=== PATIENT | male | born 1980 | race Caucasian/White ===

== ENCOUNTER 2019-12-12 08:54 | Outpatient (REF) | payer OTHER, SELFPAY | END 2019-12-12 08:55 | disposition home or self-care (01) | LOC: HO.BBR 08:54 | PROVIDERS: Visit Provider Internal Medicine | DX: E83.110 Hereditary hemochromatosis (principal) | CPT/HCPCS: 99195 ==

== ENCOUNTER → 2020-01-01 09:18 | Outpatient (BNV) | payer BC, OTHER, SELFPAY | PROVIDERS: PCP Internal Medicine; Visit Provider Internal Medicine | DX: E83.110 Hereditary hemochromatosis (principal) | CPT/HCPCS: 99213; 99214 ==

== ENCOUNTER 2020-05-26 14:08 | Outpatient (REF) | payer OTHER, SELFPAY | END 2020-05-26 14:09 | disposition home or self-care (01) | LOC: HO.BBR 14:08 | PROVIDERS: PCP Internal Medicine; Visit Provider Internal Medicine | DX: Z13.89 Encounter for screening for other disorder (principal) ==

== ENCOUNTER 2020-08-28 10:04 | Outpatient (REF) | payer OTHER, SELFPAY | END 2020-08-28 10:05 | disposition home or self-care (01) | LOC: HO.BBR 10:04 | PROVIDERS: Visit Provider Internal Medicine | DX: Z13.89 Encounter for screening for other disorder (principal) ==

== ENCOUNTER 2020-12-24 14:06 | Outpatient (REF) | payer OTHER, SELFPAY | END 2020-12-24 14:07 | disposition home or self-care (01) | LOC: HO.BBR 14:06 | PROVIDERS: Visit Provider Internal Medicine | DX: Z13.89 Encounter for screening for other disorder (principal) ==

== ENCOUNTER 2021-04-07 14:18 | Outpatient (REF) | payer BC, SELFPAY | END 2021-04-07 14:19 | disposition home or self-care (01) | LOC: HO.BBR 14:18 | PROVIDERS: PCP Internal Medicine; Visit Provider Internal Medicine | DX: Z13.89 Encounter for screening for other disorder (principal) ==

== ENCOUNTER 2021-06-11 14:10 | Outpatient (REF) | payer BC, SELFPAY | END 2021-06-11 14:11 | disposition home or self-care (01) | LOC: HO.BBR 14:10 | PROVIDERS: Visit Provider Internal Medicine | DX: Z13.89 Encounter for screening for other disorder (principal) ==

== ENCOUNTER 2021-08-31 09:56 | Outpatient (REF) | payer BC, SELFPAY | END 2021-08-31 09:57 | disposition home or self-care (01) | LOC: HO.BBR 09:56 | PROVIDERS: Visit Provider Internal Medicine | DX: Z13.89 Encounter for screening for other disorder (principal) ==

== ENCOUNTER 2022-09-29 14:02 | Outpatient (REF) | payer BC, SELFPAY | END 2022-09-29 14:03 | disposition home or self-care (01) | LOC: HO.BBR 14:02 | PROVIDERS: Visit Provider Internal Medicine | DX: Z13.89 Encounter for screening for other disorder (principal) ==

== ENCOUNTER 2022-11-11 14:00 | Outpatient (REF) | payer BC, SELFPAY | END 2022-11-11 14:01 | disposition home or self-care (01) | LOC: HO.BBR 14:00 | PROVIDERS: PCP Internal Medicine; Visit Provider Internal Medicine | DX: Z13.89 Encounter for screening for other disorder (principal) ==

== ENCOUNTER 2022-12-21 13:00 | Outpatient (REF) | payer BC, SELFPAY | END 2022-12-21 13:01 | disposition home or self-care (01) | LOC: HO.BBR 13:00 | PROVIDERS: PCP Internal Medicine; Visit Provider Internal Medicine | DX: Z13.89 Encounter for screening for other disorder (principal) ==

== ENCOUNTER 2023-02-01 13:59 | Outpatient (REF) | payer BC, SELFPAY | END 2023-02-01 14:00 | disposition home or self-care (01) | LOC: HO.BBR 13:59 | PROVIDERS: PCP Internal Medicine; Visit Provider Internal Medicine | DX: Z13.89 Encounter for screening for other disorder (principal) ==

== ENCOUNTER 2023-03-16 14:11 | Outpatient (REF) | payer BC, SELFPAY | END 2023-03-16 14:12 | disposition home or self-care (01) | LOC: HO.BBR 14:11 | PROVIDERS: PCP Internal Medicine; Visit Provider Internal Medicine | DX: Z13.89 Encounter for screening for other disorder (principal) ==

== ENCOUNTER 2023-05-03 14:08 | Outpatient (REF) | payer BC, SELFPAY | END 2023-05-03 14:09 | disposition home or self-care (01) | LOC: HO.BBR 14:08 | PROVIDERS: PCP Internal Medicine; Visit Provider Internal Medicine | DX: Z13.89 Encounter for screening for other disorder (principal) ==

== ENCOUNTER 2023-06-28 14:10 | Outpatient (REF) | payer BC, SELFPAY | END 2023-06-28 14:11 | disposition home or self-care (01) | LOC: HO.BBR 14:10 | PROVIDERS: PCP Internal Medicine; Visit Provider Internal Medicine | DX: Z13.89 Encounter for screening for other disorder (principal) ==

== ENCOUNTER 2023-09-13 15:19 | Outpatient (REF) | payer BC, SELFPAY ==
[2023-09-13 17:00] LABS: Ferritin 6 ng/mL (20-250)
== END 2023-09-13 15:20 | disposition home or self-care (01) ==
LOC: HO.BBR 15:19
PROVIDERS: PCP Internal Medicine; Visit Provider Internal Medicine
DX: E83.110 Hereditary hemochromatosis (principal)
CPT/HCPCS: 36415; 82728

== ENCOUNTER 2023-12-07 15:26 | Outpatient (REF) | payer BC, SELFPAY ==
[2023-12-07 17:22] LABS: Ferritin 6 ng/mL (20-250)
== END 2023-12-07 15:27 | disposition home or self-care (01) ==
LOC: HO.BBR 15:26
PROVIDERS: PCP Internal Medicine; Visit Provider Internal Medicine
DX: E83.110 Hereditary hemochromatosis (principal)
CPT/HCPCS: 36415; 82728

== ENCOUNTER 2024-04-25 08:05 | Outpatient (REF) | payer BC, SELFPAY ==
--- OUTSIDE RECORDS SUMMARY | 2024-04-25 08:16 | XMS_ITS | Encounter Summary ---
Author Organization Formerly [facility] Address [address] [place] [address] Care Team Providers Care Rn Stars Name Role Phone Nba Prakash MD Primary Care Provider [phone] Nba Prakash MD Unavailable [phone] Pcp, No Primary Care Provider Unavailabl e Encounter Details Date Type Department Care Team ([facility] Contact Info) Description 04/15/2017 Scanned Document [address] [address] Provider, Generic Social History Tobacco Use Types Packs/Day Years Used Date Smoking Tobacco: Never Smokeless Tobacco: Never Alcohol Use Standard Drinks/Week Comments Yes 0 (1 standard drink = 0.6 oz pur e alcohol) social Sex and Gender Information Value Date Recorded Sex Assigned at Male 09/14/2023 2:50 PM EDT Gender Identity Male 09/14/2023 2:50 PM EDT Sexual Orientation Heterosexual (straight) 09/13 2:50 PM EDT documented as of this encounter Plan of Treatment Not on file documented as of this encounter Visit Diagnoses Not on filedocumented in this encounter Care Teams Rn Stars Relationship Specialty Start Date End Date Nba Prakash MD PCP - General Family Medicine 03/22/17 05/16/22 Nba Prakash MD [address] [place] [address] PCP - [employer] Attributed 11/21/18 12/21/20 Pcp, No PCP - General General Medicine 05/17/22 documented as of this encounter
--- OUTSIDE RECORDS SUMMARY | 2024-04-25 08:16 | XMS_ITS | Clinical Summary ---
Author Organization [facility] Address [address] [place] [address] Care Team Providers Care Bus Van Driver Name Role Phone Pcp, No Primary Care Provider Unavailabl e Allergies Active Allergy Reactions Criticality Noted Date Comments Bupropion Hives,Rash/Dermatitis High 02/19/2016 Medications Medication Sig Dispensed Refills Start Date End Date Status MISC MEDICATION/NEUTRAC EUTICAL by Does not apply route. Protein shake with collagen, tumeric, multivitamin and mineral mix Active diclofenac enteric coated (VOLTAREN) 75 MG EC tabletIndications: Pain of left hip Take 1 tablet (75 mg total) by mouth 2 (two) times a day with meals. Administer with food avoid GI upset. 180 tablet 01/23/2024 Active benzonatate (TESSALON) 200 MG capsuleIndications :Bronchitis Take 1 capsule (200 mg total) by mouth 3 (three) times a day as needed for cough. 20 capsule 02/01/2024 Active proMETHAZINE-dextr omethorphan (proMETHAZINE-DM) 6.25-15 MG/5ML syrupIndications:B ronchitis Take 5 mL by mouth every 4 (four) hours as needed for cough. 120 mL 02/01/2024 Active albuterol (PROVENTIL HFA; VENTOLIN HFA) 108 (90 Base) MCG/ACT inhalerIndications :Bronchitis Inhale 2 puffs 4 times daily (every 6 hours) as needed for wheezing. 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 [address] [place] [address] Hasmukh Castellanos MD Scott, Courtney A, PA-C Bronchitis (Primary Dx) 02/01/2024 Scanned Document [facility] [address] [facility] [address] [place] [address] Provider, Generic 02/01/2024 Travel 02/01/2024 Scanned Document [facility] [address] [facility] [address] [place] [address] Provider, Generic 01/30/2024 7:07 AM EST - 01/30/2024 11:59 PM EST Hospital Encounter [facility] Radiology [facility] [address] [place] [address] Nilo Duque MD Pain of left hip Discharge Disposition: Home or Self Care from Last 3 Months Family History Medical History Relation Name Comments Hemochromatosis Brother 2 Hypertension Father Hypertension Mother Relation Name Status Comments Brother 1 Alive Brother 2 Alive Father Alive Mother Alive Social History Tobacco Use Types Packs/Day Years Used Date Smoking Tobacco: Never Smokeless Tobacco: Never Alcohol Use Standard Drinks/Week Comments Yes 0 (1 standard drink = 0.6 oz pur e alcohol) social Sex and Gender Information Value Date Recorded Sex Assigned at Male 09/14/2023 2:50 PM EDT Gender Identity Male 09/14/2023 2:50 PM EDT Sexual Orientation Heterosexual (straight) 09/13 2:50 PM EDT Last Filed Vital Signs Vital Sign Reading Time Taken Comments Blood Pressure 109/72 02/01/2024 9:19 AM EST Pulse 60 02/01/2024 9:19 AM EST Temperature 36.8 ??C (98.2 ??F) 02/01/2024 9:19 AM ES T Respiratory Rate 19 02/01/2024 9:19 AM EST Oxygen Saturation 98% 02/01/2024 9:19 AM EST Inhaled Oxygen Concentration - - Weight 96.2 kg (212 lb) 02/01/2024 9:19 AM EST Height 182.9 cm (6') 02/01/2024 9:19 AM EST Body Mass Index 28.75 02/01/2024 9:19 AM EST Plan of Treatment Health Maintenance Due Date Last Done Comments Hepatitis C Virus Screening 1982 DTaP/Tdap/Td Vaccines (1 - Tdap) 2001 Hepatitis B Vaccines (1 of 3 - 19+ 3-dose series) 2001 HIV Screening Completed 10/13/2020 COVID-19 Vaccine Completed 12/08/2023, , 11/25/2021, Additional history exists Influenza Vaccine Completed 12/08/2023, , 12/09/2022, Additional history exists HPV Vaccines Aged Out No longer eligi ble based on patient's age to complete this topic Pneumococcal Vaccine: Pediatric (0-5 Years) and At-Risk Patients (6 to 49 Years) Aged Out No longer eligible based on patient's age to complete this topic Procedures Procedure Name Priority Date/Time Associated Diagnosis Comments MRI HIP W/O CONTRAST-LEFT Routine 01/30/2024 7:43 AM EST Pain of left hip from Last 3 Months Results * MRI Hip w/o contrast-Left (01/30/2024 7:43 AM EST) Anatomical Region Laterality Modality Hip Left Magnetic Resonan ce 01/30/2024 11:3 6 AM EST Impressions 01/30/2024 11:44 AM EST 1. Moderate osteoarthrosis of the left hip joint. Bulky osteophytes at the femoral head/neck junction with abnormal alpha angle of 61 degrees, findings which may predispose towards cam-type femoroacetabular impingement. 2. Complex tear of the posterosuperior and superior acetabular labrum. 3. 5 mm ossified intra-articular body within the anteroinferior hip joint and possible 2 mm low signal body within the posteroinferior hip joint. Narrative 01/30/2024 11:44 AM EST EXAM: MRI HIP W/O CONTRAST-LEFT on 01/30/2024 7:08 AM CLINICAL HISTORY: RYAN LOPEZ is a 43 years old patient with a submitted history of LEFT HIP PAIN R/O LABRAL TEAR, 4-5 months of left hip pain with no injury surgery or cancer, suspected arthritis. ADDITIONAL HISTORY: Pain of left hip COMPARISONS: None TECHNIQUE: Following established exam protocols, multisequence, multiangle images with fat saturation were obtained through the left hip without contrast. FINDINGS: BONES: Bone marrow signal is normal, without evidence for fracture or bone marrow edema. There is no avascular necrosis of the femoral head. Bulky osteophytes at the femoral head/neck junction, pronounced anterosuperiorly. Result in abnormal alpha angle of 61 degrees, findings which predispose towards cam-type femoroacetabular impingement. HIP JOINT: There is moderate superolateral hip joint space narrowing with areas of high-grade to full-thickness femoroacetabular chondral loss anterosuperiorly and posterosuperiorly. Mild subchondral cystic change within the superior acetabulum. There is a small synovial herniation pit at the anterosuperior femoral head/neck junction. Small hip joint effusion. An ossified intra-articular body within the anteroinferior joint measures 6 x 5 mm. Possible additional small low signal body within the posteroinferior joint measures 2 mm. LABRUM: Complex multidirectional tear of the posterosuperior and superior acetabular labrum from the 10:00 through 12:30 positions. SOFT TISSUES: There is no greater trochanteric or iliopsoas bursitis. The hamstring origins are intact. The gluteus minimus and medius tendons attach normally on the greater trochanter. There is no muscle edema or atrophy. PELVIC CONTENTS:Limited evaluation of the intrapelvic contents is unremarkable. Procedure Note Karey Awan MD - 01/30/2024 EXAM: MRI HIP W/O CONTRAST-LEFT on 01/30/2024 7:08 AM CLINICAL HISTORY: RYAN LOPEZ is a 43 years old patient with a submitted history ofLEFT HIP PAIN R/O LABRAL TEAR, 4-5 months of left hip pain with no injurysurgery or cancer, suspected arthritis. ADDITIONAL HISTORY: Pain of left hip COMPARISONS: None TECHNIQUE: Following established exam protocols, multisequence, multiangle imageswith fat saturation were obtained through the left hip without contrast. FINDINGS: BONES: Bone marrow signal is normal, without evidence for fracture or bonemarrow edema. There is no avascular necrosis of the femoral head. Bulkyosteophytes at the femoral head/neck junction, pronouncedanterosuperiorly. Result in abnormal alpha angle of 61 degrees, findings which predispose towards cam-type femoroacetabularimpingement. HIP JOINT: There is moderate superolateral hip joint space narrowing withareas of high-grade to full-thickness femoroacetabular chondral lossanterosuperiorly and posterosuperiorly. Mild subchondral cystic changewithin the superior acetabulum. There is a small synovial herniation pit at the anterosuperior femoral head/neckjunction. Small hip joint effusion. An ossified intra-articular bodywithin the anteroinferior joint measures 6 x 5 mm. Possible additionalsmall low signal body within the posteroinferior joint measures 2 mm. LABRUM: Complex multidirectional tear of the posterosuperior and superioracetabular labrum from the 10:00 through 12:30 positions. SOFT TISSUES: There is no greater trochanteric or iliopsoas bursitis. Thehamstring origins are intact. The gluteus minimus and medius tendonsattach normally on the greater trochanter. There is no muscle edema oratrophy. PELVIC CONTENTS:Limited evaluation of the intrapelvic contents isunremarkable. IMPRESSION: 1. Moderate osteoarthrosis of the left hip joint. Bulky osteophytes at thefemoral head/neck junction with abnormal alpha angle of 61 degrees,findings which may predispose towards cam-type femoroacetabularimpingement. 2. Complex tear of the posterosuperior and superior acetabular labrum. 3. 5 mm ossified intra-articular body within the anteroinferior hip jointand possible 2 mm low signal body within the posteroinferior hip joint. Nilo Duque MD IMG MRI ORDERABLES from Last 3 Months Care Teams Bus Van Driver Relationship Specialty Start Date End Date Pcp, Loan PCP - General General Medicine 05/17/22
--- OUTSIDE RECORDS SUMMARY | 2024-04-25 08:16 | XMS_ITS | Encounter Summary ---
Author Organization [facility] Address [address] [place] [address] Care Team Providers Care Blogs Manager Name Role Phone Pcp, No Primary Care Provider Unavailabl e Nba Prakash MD Primary Care Provider [phone] Nba Prakash MD Unavailable [phone] Pcp, No Primary Care Provider Unavailabl e Encounter Details Date Type Department Care Team (Late st Contact Info) Description 01/25/2017 Scanned Document [address] [address] Provider, Generic Social History Tobacco [...] on filedocumented in this encounter Care Teams Blogs Manager Relationship Specialty Start Date End Date Pcp, No PCP - General General Medicine 02/17/16 03/21/17 Nba Prakash MD PCP - General Family Medicine 03/22/17 05/16/22 Nba Prakash MD [facility] [place] [address] [place] [address] PCP - [employer] Attributed 11/21/18 12/21/20 Pcp, No PCP - General General Medicine 05/17/22 documented as of this encounter
--- OUTSIDE RECORDS SUMMARY | 2024-04-25 08:16 | XMS_ITS | Encounter Summary ---
Author Organization [facility] Address [address] [place] [address] Care Team Providers Care It Telecom Technician Name Role Phone Nba Prakash MD Primary Care Provider [phone] Nba Prakash MD Unavailable [phone] Pcp, No Primary Care Provider Unavailabl e Encounter Details Date Type Department Care Team ([facility] Contact Info) Description 09/21/2019 Scanned Document [address] [address] Nba Prakash MD [address] [place] [address] Social History Tobacco Use Types Packs/Day Years [...] on filedocumented in this encounter Care Teams It Telecom Technician Relationship Specialty Start Date End Date Nba Prakash MD PCP - General Family Medicine 03/22/17 05/16/22 YoNba martinez MD [address] [place] [address] PCP - [employer] Attributed 11/21/18 12/21/20 Pcp, No PCP - General General Medicine 05/17/22 documented as of this encounter
--- OUTSIDE RECORDS SUMMARY | 2024-04-25 08:16 | XMS_ITS | Encounter Summary ---
Author Organization [facility] Address [address] [place] [address] Care Team Providers Care Inside Tester Name Role Phone Pcp, No Primary Care Provider Unavailabl e Nba Prakash MD Primary Care Provider [phone] Nba Prakash MD Unavailable [phone] Pcp, No Primary Care Provider Unavailabl e Encounter Details Date Type Department Care Team (Late st Contact Info) Description 01/28/2017 Scanned Document [address] [address] Provider, Generic Social History Tobacco [...] on filedocumented in this encounter Care Teams Inside Tester Relationship Specialty Start Date End Date Pcp, No PCP - General General Medicine 02/17/16 03/21/17 Nba Prakash MD PCP - General Family Medicine 03/22/17 05/16/22 Nba Prakash MD [facility] [place] [address] PCP - [employer] Attributed 11/21/18 12/21/20 Pcp, No PCP - General General Medicine 05/17/22 documented as of this encounter
--- OUTSIDE RECORDS SUMMARY | 2024-04-25 08:16 | XMS_ITS | Encounter Summary ---
Author Organization [facility] Address [address] [place] [address] Care Team Providers Care Wrapper And Preserver Name Role Phone Nba Prakash MD Primary Care Provider [phone] Nba Prakash MD Unavailable [phone] Pcp, No Primary Care Provider Unavailabl e Encounter Details Date Type Department Care Team ([facility] Contact Info) Description 04/15/2017 Scanned Document [address] [address] Provider, Generic Social History Tobacco [...] on filedocumented in this encounter Care Teams Wrapper And Preserver Relationship Specialty Start Date End Date Nba Prakash MD PCP - General Family Medicine 03/22/17 05/16/22 Nba Prakash MD [address] [place] [address] PCP - [employer] Attributed 11/21/18 12/21/20 Pcp, No PCP - General General Medicine 05/17/22 documented as of this encounter
--- OUTSIDE RECORDS SUMMARY | 2024-04-25 08:16 | XMS_ITS | Clinical Summary ---
Author Organization [facility] it Address [address] [place] [address] Care Team Providers Care Waste Machine Tender Name Role Phone Nba Prakash MD Primary Care Provider Social History Tobacco Use Types Packs/Day Years Used Date Smoking Tobacco: Never Assessed Sex and Gender Information Value Date Recorded Sex Assigned at Not on file Legal Sex Male 9:18 PM EST Gender Identity Not on file Sexual Orientation Not on file Plan of Treatment Health Maintenance Due Date Last Done Comments DTaP,Tdap,and Td Vaccines (1 - Tdap) 2001 Hepatitis B Vaccines (1 of 3 - 19+ 3-dose series) 2001 COVID-19 Vaccine (2023-2 5 season) 2023 03/07/2020, 02/18/2020 Influenza Vaccine (#1) 2023 HIB Vaccines Aged Out No longer eligi ble based on patient's age to complete this topic HPV Vaccines Aged Out No longer eligi ble based on patient's age to complete this topic Hepatitis A Vaccines Aged Out No long er eligible based on patient's age to complete this topic IPV Vaccines Aged Out No longer eligi ble based on patient's age to complete this topic MMR Vaccines Aged Out No longer eligi ble based on patient's age to complete this topic Meningococcal ACWY Vaccine Aged Out N o longer eligible based on patient's age to complete this topic Meningococcal B Vacine Aged Out No lo nger eligible based on patient's age to complete this topic Pneumococcal Vaccine: Pediatrics (0 to 5 Years) and At-Risk Patients (6 to 64 Years) Aged Out No longer eligible b ased on patient's age to complete this topic RSV Immunization Patients Under 20 months Aged Out No longer eligible b ased on patient's age to complete this topic Varicella Vaccines Aged Out No longer eligible based on patient's age to complete this topic Care Teams Waste Machine Tender Relationship Specialty Start Date End Date Nba Prakash MD [address] [place] [address] PCP - General Internal Medicine 02/18/20
--- OUTSIDE RECORDS SUMMARY | 2024-04-25 08:16 | XMS_ITS ---
Author Name [facility] Organization Unknown History of Medication Use Medication Directions Dispensed Refills Start Date End Date Stat benzonatate (TESSALON) 200 MG capsule Take 1 capsule (200 mg total) by mouth 3 (three) times a day as needed for cough. 02/01/2024 active Problems Problem Status Onset Date Problem Type Date of Resolution Source H/O Dunn's palsy active 2017-04-15 ProblemAct H HCCT Arthritis of left hip active EncounterDiagnosis Act CCT Depression active 2017-04-15 ProblemAct HHCCT Hemochromatosis active 2016-02-19 ProblemAct HH CCT
--- OUTSIDE RECORDS SUMMARY | 2024-04-25 08:16 | XMS_ITS | Clinical Summary ---
Author Organization [facility] Address [address] [place] [address] Care Team Providers Care Manager Truck Name Role Phone Nba Prakash MD Primary Care Provider [phone] Immunizations Name Administration Dates Next Due Covid-19 (Pfizer) Dilution Required 03/07/2020,1 04/20/2019 Social History Tobacco Use Types Packs/Day Years Used Date Smoking Tobacco: Never Assessed Sex and Gender Information Value Date Recorded Sex Assigned at Male 02/18/2020 2:49 PM EST Gender Identity Not on file Sexual Orientation Not on file Plan of Treatment Health Maintenance Due Date Last Done Comments Hepatitis B Vaccines (1 of 3 - 3-dose series) 1982 Depression Screening 1994 Preventative Health Evaluation 2000 DTap / Tdap / Td (1 - Tdap) 2001 COVID-19 Vaccine (3 - 2023-2 5 season) 2023 03/07/2020, 02/18/2020 Influenza Vaccine (#1) 2023 Hepatitis C Screening Completed 10/13/2020 Pneumococcal Vaccine Aged Out No long er eligible based on patient's age to complete this topic RSV Ped < 20 months Aged Out No longe r eligible based on patient's age to complete this topic Care Teams Manager Truck Relationship Specialty Start Date End Date Nba Prakash MD [address] [place] [address] PCP - General Internal Medicine 02/18/20
--- OUTSIDE RECORDS SUMMARY | 2024-04-25 08:16 | XMS_ITS | Encounter Summary ---
Author Organization [facility] Address [address] [place] [address] Care Team Providers Care Mechanical Maintenance Engineer Name Role Phone Nba Prakash MD Primary Care Provider [phone] Nba Prakash MD Unavailable [phone] Pcp, No Primary Care Provider Unavailabl e Encounter Details Date Type Department Care Team ([facility] Contact Info) Description 10/17/2019 Scanned Document [address] [address] Nba Prakash MD [address] [place] [address] Social History Tobacco Use Types Packs/Day Years [...] on filedocumented in this encounter Care Teams Mechanical Maintenance Engineer Relationship Specialty Start Date End Date Nba Prakash MD PCP - General Family Medicine 03/22/17 05/16/22 YoNba martinez MD [address] [place] [address] PCP - [employer] Attributed 11/21/18 12/21/20 Pcp, No PCP - General General Medicine 05/17/22 documented as of this encounter
--- OUTSIDE RECORDS SUMMARY | 2024-04-25 08:16 | XMS_ITS | Encounter Summary ---
Author Organization [facility] Address [address] [place] [address] Care Team Providers Care Embedded Systems Software Developer Name Role Phone Nba Prakash MD Primary Care Provider [phone] Nba Prakash MD Unavailable [phone] Pcp, No Primary Care Provider Unavailabl e Encounter Details Date Type Department Care Team ([facility] Contact Info) Description 10/17/2019 Scanned Document [address] [address] Nba Prakash MD [address] [place] [address] Social History Tobacco Use Types Packs/Day Years [...] on filedocumented in this encounter Care Teams Embedded Systems Software Developer Relationship Specialty Start Date End Date Nba Prakash MD PCP - General Family Medicine 03/22/17 05/16/22 YoNba martinez MD [address] [place] [address] PCP - [employer] Attributed 11/21/18 12/21/20 Pcp, No PCP - General General Medicine 05/17/22 documented as of this encounter
--- OUTSIDE RECORDS SUMMARY | 2024-04-25 08:17 | XMS_ITS | Encounter Summary ---
Author Organization [facility] Address [address] [place] [address] Care Team Providers Care Strategic Planner Name Role Phone Pcp, No Primary Care Provider Unavailabl e Encounter Details Date Type Department Care Team ([facility] Contact Info) Description 02/01/[address] [facility] [address] [facility] [address] [place] [phone] Provider, Generic Social History Tobacco Use Types [...] on filedocumented in this encounter Care Teams Strategic Planner Relationship Specialty Start Date End Date Pcp, No PCP - General General Medicine 05/17/22 documented as of this encounter
--- OUTSIDE RECORDS SUMMARY | 2024-04-25 08:17 | XMS_ITS | Clinical Summary ---
Author Organization [facility] Address [address] [place] [address] Care Team Providers Care Billboard Poster Helper Name Role Phone Hasmukh Bullard MD Primary Care Provider [phone] Allergies Active Allergy Reactions Criticality Noted Date Comments Bupropion 02/10/2009 Food 05/14/2010 Reactions: Throat Tightening , [employer] Comment: 14May2010: Just certain varieties of apples. Active Problems Problem Noted Date Diagnosed Date Hyperglycemia 05/14/2010 Allergic rhinitis 02/10/2009 Hemochromatosis 02/10/2009 Immunizations Name Administration Dates Next Due DTP-Hib 02/10/1989,03/09/1985,02/03/1983 ,1982,1982 Hep B (adult) 10/04/1997 Hep B (pedi) 06/21/1998,11/09/1997 MMR 10/20/1995 Measles 10/12/1983 Mumps 10/18/1984 OPV 04/13/1988,03/09/1985,1982 ,1982 Rubella 10/18/1984 Td (adult), adsorbed 10/04/1997 Tdap 05/14/2010 Family History Medical History Relation Name Comments Thyroid Disorder Mother Hypothyroid ism : Mother Depression Other Depression : Fa cally History Hemochromatosis Other Hemochromato sis : Family History Relation Name Status Comments Mother Other Social History Tobacco Use Types Packs/Day Years Used Date Smoking Tobacco: Never Assessed Comments:Smoking Status:Pearl bob a smoker Sex and Gender Information Value Date Recorded Sex Assigned at Not on file Legal Sex Male 3:01 PM EDT Gender Identity Not on file Sexual Orientation Not on file Last Filed Vital Signs Vital Sign Reading Time Taken Comments Blood Pressure 112/68 05/14/2010 9:35 AM EDT Pulse - - Temperature - - Respiratory Rate - - Oxygen Saturation - - Inhaled Oxygen Concentration - - Weight 92.5 kg (203 lb 15.9 oz) 05/14/2010 9:35 AM EDT Height 184.2 cm (6' 0.5 ) 05/14/2010 9:35 AM EDT Body Mass Index 27.29 05/14/2010 9:35 AM EDT Plan of Treatment Health Maintenance Due Date Last Done Comments Hepatitis C Screening 1982 DTaP/Tdap/Td (7 - Td or Tdap) 05/14/2020 05/14/2010, 10/04/1997, 02/10/1989, Additional history exists COVID-19 Vaccine (2023- season) 2023 Influenza (#1) 2023 Zoster (Shingrix) (1 of 2) 2032 Hib Completed 02/10/1989, 02/21, 02/03/1983, Additional history exists Hep B Completed 06/21/1998, 10/22, 10/04/1997 HPV Vaccine Aged Out No longer eligi ble based on patient's age to complete this topic Hep A Aged Out No longer eligi ble based on patient's age to complete this topic Meningococcal ACWY Aged Out No longer eligible based on patient's age to complete this topic Pneumococcal Aged Out No longer eligi ble based on patient's age to complete this topic Care Teams Billboard Poster Helper Relationship Specialty Start Date End Date Hasmukh Bullard MD [facility] [address] [place] [address] PCP - General 09/27/22
--- OUTSIDE RECORDS SUMMARY | 2024-04-25 08:17 | XMS_ITS | Encounter Summary ---
Author Organization [facility] Address [address] [place] [address] Care Team Providers Care Process Inspector Name Role Phone Nba Prakash MD Primary Care Provider [phone] Nba Prakash MD Unavailable [phone] Pcp, No Primary Care Provider Unavailabl e Encounter Details Date Type Department Care Team ([facility] Contact Info) Description 10/18/2018 Scanned Document [address] [phone] Nba Prakash MD [address] [place] [address] Social History Tobacco Use Types Packs/Day Years [...] on file documented as of this encounter Procedures Procedure Name Priority Date/Time Associated Diagnosis Comments LAB RESULT Routine 10/18/2018 documented in this encounter Results * LAB RESULT (10/18/2018) Nba Prakash MD HX AMB PROCEDURES documented in this encounter Visit Diagnoses Not on filedocumented in this encounter Care Teams Process Inspector Relationship Specialty Start Date End Date Nba Prakash MD PCP - General Family Medicine 03/22/17 05/16/22 Nba Prakash MD [address] [place] [address] PCP - [employer] Attributed 11/21/18 12/21/20 Pcp, No PCP - General General Medicine 05/17/22 documented as of this encounter
--- OUTSIDE RECORDS SUMMARY | 2024-04-25 08:17 | XMS_ITS | Encounter Summary ---
Author Organization [facility] Address [address] [place] [address] Care Team Providers Care Crime Analyst Name Role Phone Nba Prakash MD Primary Care Provider [phone] Nba Prakash MD Unavailable [phone] Pcp, No Primary Care Provider Unavailabl e Encounter Details Date Type Department Care Team ([facility] Contact Info) Description 05/18/2019 Scanned Document [address] [phone] Nba Prakash MD [address] [place] [address] Social History Tobacco Use Types Packs/Day Years [...] on filedocumented in this encounter Care Teams Crime Analyst Relationship Specialty Start Date End Date Nba Prakash MD PCP - General Family Medicine 03/22/17 05/16/22 YoNba martinez MD [address] [place] [address] PCP - [employer] Attributed 11/21/18 12/21/20 Pcp, No PCP - General General Medicine 05/17/22 documented as of this encounter
--- OUTSIDE RECORDS SUMMARY | 2024-04-25 08:17 | XMS_ITS | Encounter Summary ---
Author Organization [facility] Address [address] [place] [address] Care Team Providers Care Trapeze Artist Name Role Phone Nba Prakash MD Primary Care Provider [phone] Nba Prakash MD Unavailable [phone] Pcp, No Primary Care Provider Unavailabl e Encounter Details Date Type Department Care Team ([facility] Contact Info) Description 05/25/2019 Scanned Document [address] [phone] Nba Prakash MD [address] [place] [address] Social History Tobacco Use Types Packs/Day Years [...] Date/Time Associated Diagnosis Comments LAB RESULT Routine 05/23/2019 documented in this encounter Results * LAB RESULT (05/23/2019) Nba Prakash MD HX AMB PROCEDURES documented in this encounter Visit Diagnoses Not on filedocumented in this encounter Care Teams Trapeze Artist Relationship Specialty Start Date End Date Nba Prakash MD PCP - General Family Medicine 03/22/17 05/16/22 Nba Prakash MD [address] [place] [address] PCP - [employer] Attributed 11/21/18 12/21/20 Pcp, No PCP - General General Medicine 05/17/22 documented as of this encounter
--- OUTSIDE RECORDS SUMMARY | 2024-04-25 08:17 | XMS_ITS | Encounter Summary ---
Author Organization [facility] Address [address] [place] [address] Care Team Providers Care Instrument Specialist Name Role Phone Nba Prakash MD Primary Care Provider [phone] Nba Prakash MD Unavailable [phone] Pcp, No Primary Care Provider Unavailabl e Encounter Details Date Type Department Care Team ([facility] Contact Info) Description 07/26/2019 Scanned Document [address] [phone] Nba Prakash MD [address] [place] [address] Social History Tobacco Use Types Packs/Day Years [...] on filedocumented in this encounter Care Teams Instrument Specialist Relationship Specialty Start Date End Date Nba Prakash MD PCP - General Family Medicine 03/22/17 05/16/22 YoNba martinez MD [address] [place] [address] PCP - [employer] Attributed 11/21/18 12/21/20 Pcp, No PCP - General General Medicine 05/17/22 documented as of this encounter
--- OUTSIDE RECORDS SUMMARY | 2024-04-25 08:17 | XMS_ITS | Encounter Summary ---
Author Organization [facility] Address [address] [place] [address] Care Team Providers Care Printing Specialist Name Role Phone Pcp, No Primary Care Provider Unavailabl e Encounter Details Date Type Department Care Team ([facility] st Contact Info) Description 02/01/2024 Scanned Document [facility] 80 [facility] [address] [place] [phone] Provider, Generic Social History Tobacco Use Types [...] on filedocumented in this encounter Care Teams Printing Specialist Relationship Specialty Start Date End Date Pcp, No PCP - General General Medicine 05/17/22 documented as of this encounter
--- OUTSIDE RECORDS SUMMARY | 2024-04-25 08:17 | XMS_ITS | Clinical Summary ---
Author Organization [facility] Address [address] [place] [address] Care Team Providers Care Rand Maker Name Role Phone Unavailable Primary Care Provider Unavailabl e Social History Tobacco Use Types Packs/Day Years Used Date Smoking Tobacco: Never Assessed Sex and Gender Information Value Date Recorded Sex Assigned at Not on file Legal Sex Male 2:56 AM EST Gender Identity Not on file Sexual Orientation Not on file Plan of Treatment Not on file
--- OUTSIDE RECORDS SUMMARY | 2024-04-25 08:17 | XMS_ITS | Encounter Summary ---
Author Organization [facility] Address [address] [place] [address] Care Team Providers Care Qualifications Examiner Name Role Phone Pcp, No Primary Care Provider Unavailabl e Encounter Details Date Type Department Care Team ([facility] Contact Info) Description 01/04/2024 Scanned Document [facility] ORTHO SURGERY SCAN Orthopedic Surgery, Scan Social History Tobacco Use Types Packs/Day Years [...] on filedocumented in this encounter Care Teams Qualifications Examiner Relationship Specialty Start Date End Date Pcp, No PCP - General General Medicine 05/17/22 documented as of this encounter
--- OUTSIDE RECORDS SUMMARY | 2024-04-25 08:17 | XMS_ITS | Encounter Summary ---
Author Organization [facility] Address [address] [place] [address] Care Team Providers Care Pump And Blower Operator Name Role Phone Nba Prakash MD Primary Care Provider [phone] Nba Prakash MD Unavailable [phone] Pcp, No Primary Care Provider Unavailabl e Encounter Details Date Type Department Care Team ([facility] Contact Info) Description 05/18/2019 Scanned Document [address] [phone] Nba Prakash MD [address] [place] [address] Social History Tobacco Use Types Packs/Day Years [...] Date/Time Associated Diagnosis Comments LAB RESULT Routine 05/01/2019 documented in this encounter Results * LAB RESULT (05/01/2019) Nba Prakash MD HX AMB PROCEDURES documented in this encounter Visit Diagnoses Not on filedocumented in this encounter Care Teams Pump And Blower Operator Relationship Specialty Start Date End Date Nba Prakash MD PCP - General Family Medicine 03/22/17 05/16/22 Nba Prakash MD [address] [place] [address] PCP - [employer] Attributed 11/21/18 12/21/20 Pcp, No PCP - General General Medicine 05/17/22 documented as of this encounter
--- OUTSIDE RECORDS SUMMARY | 2024-04-25 08:17 | XMS_ITS | Encounter Summary ---
Author Organization [facility] Address [address] [place] [address] Care Team Providers Care Line Runner Name Role Phone Pcp, No Primary Care Provider Unavailabl e Nba Prakash MD Primary Care Provider [phone] Nba Prakash MD Unavailable [phone] Pcp, No Primary Care Provider Unavailabl e Encounter Details Date Type Department Care Team (Late st Contact Info) Description 01/25/2017 Scanned Document [address] [phone] Provider, Generic Social History Tobacco [...] on filedocumented in this encounter Care Teams Line Runner Relationship Specialty Start Date End Date Pcp, No PCP - General General Medicine 02/17/16 03/21/17 Nba Prakash MD PCP - General Family Medicine 03/22/17 05/16/22 Nba Prakash MD [facility] [place] [address] PCP - [employer] Attributed 11/21/18 12/21/20 Pcp, No PCP - General General Medicine 05/17/22 documented as of this encounter
--- OUTSIDE RECORDS SUMMARY | 2024-04-25 08:17 | XMS_ITS | Encounter Summary ---
Author Organization [facility] Address [address] [place] [address] Care Team Providers Care Director Ship Name Role Phone Pcp, No Primary Care Provider Unavailabl e Encounter Details Date Type Department Care Team ([facility] Contact Info) Description 01/24/2024 Scanned Document [facility] 80 [facility] [address] [place] [phone] Primary Care, Scan Social History Tobacco Use Types Packs/Day [...] Procedure Name Priority Date/Time Associated Diagnosis Comments HX OUTSIDE ORDER 01/24/2024 documented in this encounter Results * OUTSIDE ORDER (01/24/2024) Scan Primary Care HX AMB PROCEDURES documented in this encounter Visit Diagnoses Not on filedocumented in this encounter Care Teams Director Ship Relationship Specialty Start Date End Date Pcp, No PCP - General General Medicine 05/17/22 documented as of this encounter
--- OUTSIDE RECORDS SUMMARY | 2024-04-25 08:17 | XMS_ITS | Encounter Summary ---
Author Organization [facility] Address [address] [place] [address] Care Team Providers Care Marketing Forecaster Name Role Phone Nba Prakash MD Primary Care Provider [phone] Nba Prakash MD Unavailable [phone] Pcp, No Primary Care Provider Unavailabl e Encounter Details Date Type Department Care Team ([facility] Contact Info) Description 04/09/2019 Scanned Document [address] [phone] Nba Prakash MD [address] [place] [address] Social History Tobacco Use Types Packs/Day Years [...] on filedocumented in this encounter Care Teams Marketing Forecaster Relationship Specialty Start Date End Date Nba Prakash MD PCP - General Family Medicine 03/22/17 05/16/22 YoNba martinez MD [address] [place] [address] PCP - [employer] Commercial Attributed 11/21/18 12/21/20 Pcp, No PCP - General General Medicine 05/17/22 documented as of this encounter
--- OUTSIDE RECORDS SUMMARY | 2024-04-25 08:17 | XMS_ITS | Encounter Summary ---
Author Organization [facility] Address [address] [place] [address] Care Team Providers Care Manufacturing Mechanic Name Role Phone Pcp, No Primary Care Provider Unavailabl e Nba Prakash MD Primary Care Provider [phone] Nba Prakash MD Unavailable [phone] Pcp, No Primary Care Provider Unavailabl e Encounter Details Date Type Department Care Team (Late st Contact Info) Description 01/18/2017 Scanned Document [address] [phone] Provider, Generic Social History Tobacco Use Types Packs/Day Years Used Date Smoking Tobacco: Never Alcohol Use Standard Drinks/Week Comments Not Asked 0 (1 standard drink = 0.6 oz pur e alcohol) Sex and Gender Information Value Date Recorded Sex Assigned at Male 09/14/2023 2:50 PM EDT Gender Identity Male 09/14/2023 2:50 PM EDT Sexual Orientation Heterosexual (straight) 09/13 2:50 PM EDT documented as of this encounter Plan of Treatment Not on file documented as of this encounter Visit Diagnoses Not on filedocumented in this encounter Care Teams Manufacturing Mechanic Relationship Specialty Start Date End Date Pcp, No PCP - General General Medicine 02/17/16 03/21/17 Nba Prakash MD PCP - General Family Medicine 03/22/17 05/16/22 Nba Prakash MD [address] [place] [address] PCP - [employer] Attributed 11/21/18 12/21/20 Pcp, No PCP - General General Medicine 05/17/22 documented as of this encounter
--- OUTSIDE RECORDS SUMMARY | 2024-04-25 08:17 | XMS_ITS | Encounter Summary ---
Author Organization [facility] Address [address] [place] [address] Care Team Providers Care Supervisor Inspection Name Role Phone Pcp, No Primary Care Provider Unavailabl e Nba Prakash MD Primary Care Provider [phone] Nba Prakash MD Unavailable [phone] Pcp, No Primary Care Provider Unavailabl e Encounter Details Date Type Department Care Team ([facility] st Contact Info) Description 01/18/2017 Scanned Document [address] [phone] Provider, Generic Social History Tobacco [...] Priority Date/Time Associated Diagnosis Comments LAB RESULT 01/18/2017 documented in this encounter Results * LAB RESULT (01/18/2017) Narrative 01/18/2017 Ordered by an unspecified provider. Generic Provider HX AMB PROCEDURES documented in this encounter Visit Diagnoses Not on filedocumented in this encounter Care Teams Supervisor Inspection Relationship Specialty Start Date End Date Pcp, No PCP - General General Medicine 02/17/16 03/21/17 Nba Prakash MD PCP - General Family Medicine 03/22/17 05/16/22 Nba Prakash MD [address] [place] [address] [place] [address] PCP - [employer] Attributed 11/21/18 12/21/20 Pcp, No PCP - General General Medicine 05/17/22 documented as of this encounter
--- OUTSIDE RECORDS SUMMARY | 2024-04-25 08:17 | XMS_ITS | Encounter Summary ---
Author Organization [facility] Address [address] [place] [address] Care Team Providers Care Plant Inspector Name Role Phone Pcp, No Primary Care Provider Unavailabl e Encounter Details Date Type Department Care Team ([facility] Contact Info) Description 11/29/2023 Scanned Document [facility] HEMATOLOGY SCAN Hematology And Oncology, Scan Social History Tobacco Use Types Packs/Day [...] on filedocumented in this encounter Care Teams Plant Inspector Relationship Specialty Start Date End Date Pcp, No PCP - General General Medicine 05/17/22 documented as of this encounter
[2024-04-25 09:45] LABS: Ferritin 9 ng/mL (20-250)
== END 2024-04-25 08:06 | disposition home or self-care (01) ==
LOC: HO.BBR 08:05
PROVIDERS: PCP Internal Medicine; Visit Provider Internal Medicine
DX: E83.110 Hereditary hemochromatosis (principal)
CPT/HCPCS: 36415; 82728